=== PATIENT | male | born 1935 | race Caucasian/White ===

== ENCOUNTER → 2017-06-01 | Outpatient (CLI) | payer MEDICARE, BC | END | disposition disaster alternative care site (69) | LOC: GRAD 15:30 | DX: R06.02 Shortness of breath (principal); I70.90 Unspecified atherosclerosis; R91.8 Other nonspecific abnormal finding of lung field ==

== ENCOUNTER → 2017-06-20 | Outpatient (CLI) | payer MEDICARE, BC | END | disposition disaster alternative care site (69) | LOC: LGSMG 15:53 | DX: N17.9 Acute kidney failure, unspecified (principal) ==